=== PATIENT | male | born 1960 | race Caucasian/White ===

== ENCOUNTER 2017-11-08 06:51 | Day surgery (SDC) | payer OTHER ==
[~2017-11-08] VITALS: Ht 182.9 cm; Wt 107.5 kg
[~2017-11-08 06:51] MED LIST: ACETAMINOPHEN325 M1; ADVIL200 MG; AMARYL4 MG PO; COZAAR25 MG PO; GLIMEPIRIDE2 MG PO; HYDROMORPHONE HC4 MG PO; LOSARTAN-HCTZ1 EAC2 PO; METFORMIN HCL500 MG PO; NORCO 7.5-3251 EACH PO; OXYCODONE HCL5 MG PO; PRILOSEC20 MG PO; TRAMADOL HCL50 MG PO; XARELTO10 MG PO
--- NOTE | 2017-11-08 08:54 | NUR ---
11/08/17 0854 Devika Jaime 0854 REPORT TO ROBER FISH
--- NOTE | 2017-11-08 14:13 | NUR ---
PT WAS ALERT, ORIENTED AND RESTING IN BED. HE INFORMED ME THAT THIS SCOPE IS A FOLLOW-UP TO TREATMENT FOR STOMACH ULCERS. HE FELT CONFIDENT THAT [facility] HAD TAKEN PLACE, HAD FEW QUESTIONS ABOUT TODAY. PT REQUESTED PRAYER AND MENTIONED THAT HE HAS RECENTLY MOVED, AND IS A NEW G.FATHER FOR THE FIRST TIME. WILL FOLLOW NEEDED
--- NOTE | 2017-11-09 10:32 | OR ---
[facility] [address], [place] [address] Signed DATE OF OPERATION: 11/08/2017 SURGEON: Amor Llanes MD PREOPERATIVE DIAGNOSIS: Giant pre-pyloric ulcer in June 2017. POSTOPERATIVE DIAGNOSES: 1. Improvement of ulcer healing, but still persistent ulcer, pre-pyloric area. 2. Negative CLOtest. 3. Hiatal hernia. PROCEDURE PERFORMED: Esophagogastroduodenoscopy with biopsy. ANESTHESIA: Intravenous sedation with fentanyl 100 mcg and Versed 3 mg. INDICATIONS FOR PROCEDURE: This 57-year-old white man is a patient of Dr. Robert Concepcion and underwent upper endoscopy by me in June of 2017, which showed a giant pre-pyloric ulcer. Hiatal hernia was also seen, but without esophagitis or Lerma's epithelium. He has been treated with Carafate and PPI medication. He had improvement of his significant back and epigastric pain, but in the past week or so, he has had increasing epigastric pain. He continues to take Prilosec 20 mg daily as well as Carafate q.i.d. He was admitted to undergo upper endoscopy to assess for healing of the ulcer. He understands the risks of bleeding, infection, and perforation related to upper endoscopy. FINDINGS: There was still an ulcer present. It had a tenacious white base to it. It is definitely smaller than previously, but it is still present. It did not deform the pylorus itself. The duodenum was normal. CLOtest was negative. There was a hiatal hernia, but no associated esophagitis or Lerma's epithelium. DESCRIPTION OF PROCEDURE: The patient was brought to the endoscopy suite, given topical Hurricaine spray, hypopharyngeal anesthesia, and placed in lateral decubitus position. He was given intravenous sedation to the point of slurred speech and nystagmus. Full cardiopulmonary monitoring was maintained. A bite block was placed. Electronically Signed By: AMOR LLANES MD 11/09/17 1032 PATIENT NAME: MALIK HERRERA OPERATIVE REPORT DATE OF : 60 REPORT #: [id number] PHYSICIAN: AMOR LLANES MD PCP: Sharad CONCEPCION MD REPORT IS CONFIDENTIAL AND NOT TO BE RELEASED WITHOUT AUTHORIZATION [facility] [address], [place] [address] Signed An Olympus video upper endoscope was passed in the hypopharynx. The vocal cords were normal. Scope was advanced to the esophagus. Throughout its length, it was normal. The scope was passed to the stomach, which was insufflated with air. Rugal folds appeared normal. The antrum appeared normal, but there was still a ulcer in the prepyloric area. It had a tenacious white base. It was not bleeding. The scope was easily passed beyond this into the duodenum. The bulbar and second portions appeared normal. The scope was withdrawn. A biopsy was taken of the edge of the ulcer, though such ulcers are notoriously unlikely to have malignancy. There is no stigmata of gastric cancer with this. Additional biopsies were taken for CLOtest. The scope was withdrawn and retroflexed view undertaken confirming hiatal hernia. Esophageal mucosa was normal. Scope was withdrawn to the distal esophagus, confirming no evidence of Lerma's epithelium. Biopsies were obtained. Nevertheless, the scope was withdrawn. The remaining esophagus was normal. The patient was taken to recovery room in good condition having suffered no complication. CONCLUDING DIAGNOSIS: Ulcer is still present, though it has improved. I would have him continue Prilosec and Carafate. I would like to see him back in the office in 8 weeks or sooner, if his symptoms are worsening. He is to avoid nonsteroidal medication and smoking, whether smoking or secondhand smoke. MD SALIMA Clancy/BIRTNEYL /[id number] cc: Sharad Concepcion MD Copies: Sharad CONCEPCION MD ~ Electronically Signed By: AMOR LLANES MD 11/09/17 1032 PATIENT NAME: MALIK HERRERA OPERATIVE REPORT DATE OF : 60 REPORT #: [id number] PHYSICIAN: AMOR LLANES MD PCP: Sharad CONCEPCION MD REPORT IS CONFIDENTIAL AND NOT TO BE RELEASED WITHOUT AUTHORIZATION
== END 2017-11-08 09:31 | disposition home or self-care (01) ==
LOC: OPS 06:51 → DS 06:51 → OPS 09:31 → DS 11-29 06:45
PROVIDERS: Surgery
PROC: 0DB68ZX Excision of Stomach, Via Natural or Artificial Opening Endoscopic, Diagnostic (ICD-10-PCS; 2017-11-08)
PROC: 0DB58ZX Excision of Esophagus, Via Natural or Artificial Opening Endoscopic, Diagnostic (ICD-10-PCS; principal; 2017-11-08 08:30)
DX: K29.50 Unspecified chronic gastritis without bleeding (principal); K25.3 Acute gastric ulcer without hemorrhage or perforation; K21.0 Gastro-esophageal reflux disease with esophagitis; K44.9 Diaphragmatic hernia without obstruction or gangrene; D64.9 Anemia, unspecified; I10 Essential (primary) hypertension; D86.9 Sarcoidosis, unspecified
CPT/HCPCS: 88305; 88342; G0500; J0690; J2250; J3010; J7120

== ENCOUNTER 2020-04-19 07:45 | Emergency (ER) | payer OTHER ==
[~2020-04-19] VITALS: Ht 182.9 cm; Wt 103.4 kg
[~2020-04-19 07:45] MED LIST changes: +BISMATROL262 MG/15 PO; +FLAGYL250 MG PO; +LEVAQUIN500 MG PO; +OXYCODON-ACETA1 EAC2 PO; +SUCRALFATE1 GM PO
[2020-04-19] MEDS ORDERED: EFFIENT5 MG PO (07:52)
[2020-04-19] MEDS ORDERED: AUGMENTIN 875-1 EACH PO (08:12)
[2020-04-19] MEDS ORDERED: NORCO 5-325 TA1 EACH PO (08:43)
== END 2020-04-19 09:00 | disposition home or self-care (01) ==
LOC: ED 07:45
DX: S65.515A Laceration of blood vessel of left ring finger, initial encounter (principal); W26.8XXA Contact with other sharp object(s), not elsewhere classified, initial encounter; I10 Essential (primary) hypertension; E11.9 Type 2 diabetes mellitus without complications; Z79.899 Other long term (current) drug therapy; Z79.84 Long term (current) use of oral hypoglycemic drugs
CPT/HCPCS: 12002; 90471; 90714; 99282-25

== ENCOUNTER 2020-04-23 20:15 | Emergency (ER) | payer OTHER ==
[~2020-04-23] VITALS: Ht 182.9 cm; Wt 110.0 kg
[~2020-04-23 20:15] MED LIST changes: +AUGMENTIN 875-1 EACH PO; +EFFIENT5 MG PO; +NORCO 5-325 TA1 EACH PO
--- OUTSIDE RECORDS SUMMARY | 2020-04-23 20:18 | XMS ---
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 Micheline VISIT COUNT (12 MO.) 4 Андрей Hart [address] [place] [address] TOTAL 6 NOTE: Visits indicate total known visits. ED/UCC VISIT TRACKING (12 MO.) 04/23/2020 20:16 NORMA [facility] [place] TYPE: Emergency COMPLAINT: - CUT FINGER 04/19/2020 07:45 NORMA Gonzalez [place] TYPE: Emergency COMPLAINT: - FINGER LAC DIAGNOSES: - Other senior living (current) drug therapy - Laceration without foreign body of left ring finger without damage to nail, initial encounter - Contact with other sharp object(s), not elsewhere classified, initial encounter - Type 2 diabetes mellitus without complications - Essential (primary) hypertension - Laceration of blood vessel of left ring finger, initial encounter - [facility] (current) use of oral hypoglycemic drugs 02/28/2020 14:27 Андрей [facility] [place] TYPE: Urgent Care DIAGNOSES: - Atherosclerotic heart disease of [place] coronary artery without angina pectoris - Rash and other nonspecific skin eruption - Disorder of the skin and subcutaneous tissue, unspecified - Unspecified systolic (congestive) heart failure - Follow-up - Presence of aortocoronary bypass graft - Presence of coronary angioplasty implant and graft - Peripheral vascular angioplasty status with implants and grafts 01/10/2020 17:59 Андрей [facility] [place] TYPE: Emergency DIAGNOSES: - Weight Gain - Acute on chronic right heart failure - Abdominal Swelling 12/13/2019 18:46 Андрей [facility] [place] TYPE: Emergency DIAGNOSES: - Orthostatic hypotension - Weak - Elevated blood-pressure reading, without diagnosis of hypertension - Myalgia, unspecified site - Dizziness - Viral infection, unspecified - Diarrhea, unspecified - Dehydration 11/13/2019 12:20 Андрей [facility] TYPE: Emergency DIAGNOSES: - Edema - Edema, unspecified - Swelling/Weight Gain - Patient's other noncompliance with medication regimen 05/16/2019 09:06 Андрей Wagonershaylee KetanNash [facility] OR TYPE: Emergency DIAGNOSES: - Other forms of dyspnea - Dizzy and shortness of breath - Dizziness INPATIENT VISIT TRACKING (12 MO.) No inpatient visits to display in this time frame [email or web address]
[2020-04-23] MEDS ORDERED: KEFLEX500 MG PO (20:47)
== END 2020-04-23 21:12 | disposition home or self-care (01) ==
LOC: ED 20:15
DX: S61.217D Laceration without foreign body of left little finger without damage to nail, subsequent encounter (principal); L08.9 Local infection of the skin and subcutaneous tissue, unspecified; I10 Essential (primary) hypertension; E11.9 Type 2 diabetes mellitus without complications; Z79.899 Other long term (current) drug therapy; Z79.84 Long term (current) use of oral hypoglycemic drugs
CPT/HCPCS: 99282

== ENCOUNTER 2020-10-08 09:59 | Emergency (ER) | payer OTHER ==
[~2020-10-08] VITALS: Ht 182.9 cm; Wt 104.3 kg
[~2020-10-08 09:59] MED LIST changes: +KEFLEX500 MG PO
[2020-10-08] MEDS ORDERED: ROSUVASTATIN CA20 MG PO (11:02)
[2020-10-08] MEDS ORDERED: BASAGLAR K100 UNIT/1 SQ (11:02)
[2020-10-08] MEDS ORDERED: PRASUGREL HCL10 MG PO (11:03)
[2020-10-08] MEDS ORDERED: SPIRONOLACTONE25 MG PO (11:03)
[2020-10-08] MEDS ORDERED: EZETIMIBE10 MG PO (11:04)
[2020-10-08] MEDS ORDERED: ZOFRAN4 MG PO (12:32)
--- NOTE | 2020-10-08 22:48 | EKG ---
[facility] [address] [facility] [place] [address] Signed Normal sinus rhythm Left axis deviation Inferior infarct (cited on or before 01-JAN-2018) Abnormal ECG When compared with ECG of 01-JAN-2018 22:10, T wave inversion no longer evident in Inferior leads Confirmed by YUAN SPARKS MD ([id number]) on 10/08/2020 10:48:27 PM Electronically Signed By: YUAN SPARKS MD 10/08/20 2248 PATIENT NAME: HERRERADAMASOMALIKANKUSH MICHELELAS Electrocardiogram DATE OF : 60 PHYSICIAN: YUAN SPARKS MD REPORT #: [id number] REPORT IS CONFIDENTIAL AND NOT TO BE RELEASED WITHOUT AUTHORIZATION
== END 2020-10-08 12:47 | disposition home or self-care (01) ==
LOC: ED 09:59
DX: K52.9 Noninfective gastroenteritis and colitis, unspecified (principal); E86.0 Dehydration; R07.89 Other chest pain; I10 Essential (primary) hypertension; E11.9 Type 2 diabetes mellitus without complications; Z79.899 Other long term (current) drug therapy; Z79.4 Long term (current) use of insulin
CPT/HCPCS: 71045; 80053; 81001; 83690; 83735; 84484; 85025; 93005; 93010; 96374; 96375; 99285-25; J1885; J2405; J7030

== ENCOUNTER 2023-06-19 02:50 | Emergency (ER) | payer OTHER ==
[~2023-06-19] VITALS: Ht 182.9 cm; Wt 98.4 kg
[~2023-06-19 02:50] MED LIST changes: +BASAGLAR K100 UNIT/1 SQ; +CYCLOBENZAPRINE10 MG PO; +EZETIMIBE10 MG PO; +NITROGLYCERIN0.4 MG SL; +PRASUGREL HCL10 MG PO; +ROSUVASTATIN CA20 MG PO; +SPIRONOLACTONE25 MG PO; +ZOFRAN4 MG PO
[2023-06-19 04:01] LABS: BASOPHILS 0.5 % (0-2); EOSINOPHILS 2.1 % (0-6); HEMATOCRIT 49.4 % (35.0-50.0); HEMOGLOBIN 16.6 g/dL (12.0-18.0); MCH 30.6 (27-36); MCHC 33.6 g/dl (30-36); MCV 91.1 fl (81-99); MONOCYTES 11.7 % (0-12); NEUTROPHILS 68.7 % (39-80); PLATELET COUNT 220 K/uL (140-440); RBC 5.42 M/ul (4.3-5.7); RDW 14.6 (10.5-15.0)
[2023-06-19 04:18] LABS: ALBUMIN 4.1 g/dL (3.4-5.0); ALBUMIN/GLOBULIN RATIO 1.32 (1.1-2.4); ANION GAP 16.2 (7-21); BILIRUBIN, TOTAL 0.3 ng/dL (0.2-1.0); BUN/CREATININE RATIO 30.08 (6.0-28.6); CREATININE, SERUM 1.23 mg/dL (0.70-1.30); POTASSIUM 4.2 mmol/L (3.5-5.1); PROTEIN, TOTAL 7.2 g/dL (6.4-8.2)
[2023-06-19 04:46] LABS: BILIRUBIN, URINE NEGATIVE (negative); BLOOD/HGB, URINE NEGATIVE (Negative); KETONE, URINE TRACE (Negative); LEUK ESTERASE, URINE NEGATIVE (negative); NITRITE, URINE NEGATIVE (negative)
[2023-06-19] MEDS ORDERED: CYCLOBENZAPRINE10 MG PO (05:10)
[2023-06-19] MEDS ORDERED: LIDODERM1 EACH TOP (05:10)
[2023-06-19 05:20] VITALS: BP 150/95
== END 2023-06-19 05:20 | disposition home or self-care (01) ==
LOC: ED 02:50
PROVIDERS: Internal Medicine
DX: M54.40 Lumbago with sciatica, unspecified side (principal); I10 Essential (primary) hypertension; E11.9 Type 2 diabetes mellitus without complications; D86.0 Sarcoidosis of lung; Z79.4 Long term (current) use of insulin; Z79.84 Long term (current) use of oral hypoglycemic drugs; Z79.899 Other long term (current) drug therapy
CPT/HCPCS: 36415; 80053; 81003; 83690; 85025; 99283